=== PATIENT | female | born 1980 | race Caucasian/White ===

== ENCOUNTER 2019-06-03 10:52 | Emergency (ER) | payer BC, OTHER ==
--- OUTSIDE RECORDS SUMMARY | 2019-06-03 11:11 | XMS REPORT | Continuity of Care Document ---
:1980 External Reference #:[id number] Author Name Iwona Burciaga FNP Address [address] [place] [id number] Care Team Providers Name Role Phone Iwona Burciaga NP Care Team Information [employer] Supervisor Unavailable Iwona Burciaga NP Primary Care Physician Unavailable Payers Date Identification Numbers Payment Provider Subscriber Policy Number: [id number] Fabiana Jacobs PayID: [id number] [address] [address] [place] [address] Problems Active Problems Provider Date Migraine with typical aura Iwona Burciaga FNP Onset: 05/10/2018 Constipation Patrica SAMIA Bustillo Onset: 05/10/2018 Gastroesophageal reflux disease Iwona Burciaga FNP Onset: 05/10/2018 Excessive and frequent menstruation Iwona Burciaga FNP Onset: 2018 Generalized anxiety disorder Patrica SAMIA Bustillo Onset: 01/01/2019 Family History Date Family Member(s) Observation Comments Father No Current Problems Mother Anemia Paternal Grandfather Diabetes diagnosed later in life : (age 73 Paternal Grandfather due to Old-Age Years) Paternal Grandmother due to Breast () - diagnosed Cancer in early 60's. 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[employer] @ [employer] ETOH Use Rarely consumes alcohol Tobacco Use Start: Unknown Patient has never smoked Smoking Status Reviewed: 04/10/19 Patient has never smoked Allergies, Adverse Reactions, Alerts Description No Known Drug Allergies Medications Active Medications SIG Qnty Indications Ordering Date Provider Sertraline HCL 1 by mouth every day 30tabs F41.1 [facility], 03/13/2019 50mg *in place of 25 mg Jenniferleigh, Tablets [employer] Buspirone HCL Take 1 To 2 Tablets 90tabs F41.1 [facility], 01/16/2019 5mg By Mouth Up To Three Jenniferleigh, Tablets Times Daily as [employer] Needed. Maximum Daily Dose Is 6. Maximum Daily Dose Is 6 Omeprazole 1 by mouth every day 30caps K21.9 [facility], 03/29/2018 20mg Jenniferleigh, Capsules DR SAMIA Nasonex one spray each 17gm [facility], 50mcg/Act nostril one to two Jenniferleigh, Suspension times a day [employer] Metamucil as needed for Unknown 0.52gm constipation Capsules Colace one PO at hs as Unknown 100mg needed for Capsules constipation Rizatriptan dissolve 1 to 2 9tabs Mack, Benzoate tablets on the [facility], 10mg tongue at onset of [employer] Tablets Dispers headache. may take another 2 hours later History Medications Sertraline HCL 1 tab by mouth 30tabs F41.1 [facility], 01/01/2019 - 25mg every day 03/13/2019 Tablets Topiramate one po qd january 60tabs G43.109 [facility], 06/11/2018 - 25mg Tablets increase dose to [facility], 01/01/2019 bid if needed [employer] Propranolol HCL ER 1 by mouth every 30caps G43.109 [facility], 05/10/2018 - 80mg day [facility], 06/11/2018 Caps ER 24HR [employer] Rizatriptan Benzoate 1-2 tabs by mouth 14tabs [facility], 03/29/2018 - at headache [facility], 03/29/2018 5mg Tablets onset, can take [employer] another 2 hours later, max 20mg/day Amitriptyline HCL 1 by mouth every 30tabs G43.109 [facility], 03/29/2018 - 25mg night at bedtime [facility], 05/10/2018 Tablets *for migraines [employer] Immunizations CPT Code Status Date Vaccine Lot # [id number] Given 05/24/2018 Influenza Virus Vaccine, Quadrivalent, 36 Mos+, .5ML [id number] Given 03/29/2018 Tdap injection [id number] Vital Signs Date Vital Result Comment 04/10/2019 9:07am BP Systolic Sitting Left Arm 133 mmHg BP Diastolic Sitting Left Arm 86 mmHg Body Temperature 97.8 F Heart Rate 76 /min Respiratory Rate 17 /min Height 67 inches 5'7" Weight 190.00 lb BMI (Body Mass Index) 29.8 kg/m2 BSA (Body Surface Area) 1.98 m2 [place] body weight in kilograms 61 kg 03/13/2019 9:06am BP Systolic Sitting Right Arm 152 mmHg BP Diastolic Sitting Right Arm 94 mmHg Heart Rate 80 /min Respiratory Rate 17 /min Height 67 inches 5'7" Weight 192.00 lb BMI (Body Mass Index) 30.1 kg/m2 BSA (Body Surface Area) 1.99 m2 [place] body weight in kilograms 61 kg O2 % BldC Oximetry 98 % Pain Level 0 01/16/2019 11:33am BP Systolic 132 mmHg BP Diastolic 80 mmHg Heart Rate 103 /min Respiratory Rate 15 /min Height 67 inches 5'7" Weight 192.00 lb BMI (Body Mass Index) 30.1 kg/m2 BSA (Body Surface Area) 1.99 m2 [place] body weight in kilograms 61 kg O2 % BldC Oximetry 99 % 01/01/2019 11:56am BP Systolic 140 mmHg BP Diastolic 92 mmHg Heart Rate 107 /min Respiratory Rate 17 /min Height 67 inches 5'7" Weight 194.12 lb BMI (Body Mass Index) 30.4 kg/m2 BSA (Body Surface Area) 2.00 m2 [place] body weight in kilograms 61 kg O2 % BldC Oximetry 99 % 07/17/2018 10:22am BP Systolic 130 mmHg BP Diastolic 84 mmHg Body Temperature 96.4 F Heart Rate 92 /min Respiratory Rate 18 /min Height 67 inches 5'7" Weight 181.00 lb BMI (Body Mass Index) 28.3 kg/m2 BSA (Body Surface Area) 1.94 m2 [place] body weight in kilograms 61 kg O2 % BldC Oximetry 96 % 06/11/2018 8:10am BP Systolic Sitting Left Arm 118 mmHg BP Diastolic Sitting Left Arm 76 mmHg Heart Rate 88 /min Respiratory Rate 18 /min Height 67 inches 5'7" Weight 182.00 lb BMI (Body Mass Index) 28.5 kg/m2 BSA (Body Surface Area) 1.94 m2 [place] body weight in kilograms 61 kg 05/10/2018 8:56am BP Systolic Sitting Left Arm 112 mmHg BP Diastolic Sitting Left Arm 72 mmHg Heart Rate 80 /min Respiratory Rate 18 /min Height 67 inches 5'7" Weight 180.38 lb BMI (Body Mass Index) 28.2 kg/m2 BSA (Body Surface Area) 1.94 m2 [place] body weight in kilograms 61 kg 03/29/2018 10:06am BP Systolic Sitting Left Arm 122 mmHg BP Diastolic Sitting Left Arm 70 mmHg Heart Rate 72 /min Respiratory Rate 18 /min Height 67 inches 5'7" Weight 185.00 lb BMI (Body Mass Index) 29.0 kg/m2 BSA (Body Surface Area) 1.96 m2 [place] body weight in kilograms 61 kg Last Menstrual Period [id number] Results Test Date Facility Test Result H/L Range Note Urine Dipstick 03/29/2018 [facility] PH 6 Low 6.5-7.5 Ua Specific [place] 1.005 Low 1.010-1.030 Procedures Date Code Description Status 01/01/2019 93343 Remove Impact Cerumen Irrigati Completed Encounters Type Date Location Provider Dx Diagnosis Office Visit 03/13/2019 [facility] Veda Burciaga, F41.1 Generalized anxiety 9:[address]a [address] [place], disorder [employer] R03.0 Elevated blood-pressure reading, w/o diagnosis of htn Office Visit 01/16/2019 [facility] Burciaga, F41.1 Generalized 11:30a Medicine SAMIA Spencer anxiety disorder RD Office Visit 01/01/2019 Family Burciaga, Z01.411 Encntr for quality control lead 11:30a Medicine SAMIA Spencer exam (general) RD (routine) w abnormal findings N92.0 Excessive and frequent menstruation with regular cycle G43.109 Migraine with aura, not intractable, w/o status migrainosus F41.1 Generalized anxiety disorder H61.23 Impacted cerumen, bilateral Office Visit 07/17/2018 Family Burciaga, G43.109 Migraine with 10:30a Medicine SAMIA Spencer aura, not RD intractable, w/o status migrainosus H61.23 Impacted cerumen, bilateral K59.00 Constipation, unspecified K21.9 Gastro-esophageal reflux disease without esophagitis Office Visit 06/11/2018 Family Patrica, G43.109 Migraine with 8:15a [facility] [place], [employer] aura, not RD intractable, w/o status migrainosus H61.23 Impacted cerumen, bilateral K59.00 Constipation, unspecified Office Visit 05/10/2018 Family Patrica, G43.109 Migraine with 9:00a [facility] [place], [employer] aura, not RD intractable, w/o status migrainosus K59.00 Constipation, unspecified K21.9 Gastro-esophageal reflux disease without esophagitis H61.23 Impacted cerumen, bilateral Office Visit 03/29/2018 Family Patrica, G43.109 Migraine with 10:15a [facility] [place], [employer] aura, not RD intractable, w/o status migrainosus K59.00 Constipation, unspecified K21.9 Gastro-esophageal reflux disease without esophagitis Z23 Encounter for immunization Plan of Treatment 04/10/2019 - Iwona Burciaga FNPF41.1 Generalized anxiety disorderComments :doing well with increased dose of Sertraline at 50 mg a day. Continue PRN use of Buspirone, and youcould try taking this before bedtime to help with sleepFollow up:nurse visit flu shot in May/jun [employer]
[2019-06-03 12:05] VITALS: BP 134/73
--- NOTE | 2019-06-03 12:30 | UC ---
General HPI - HPI Summary HPI Summary: pt is c/o pain to the inside of her L knee since 05/24/19. on 05/23/19, a projector screen came down on her R shoulder then hit her R foot and L knee while at work. she noted pain to the inside of her L knee the next day. it is a burning discomfort and worsens with use. it sometimes feels warm. the joint does not lock or give out. self tx with lidocaine. - History of Current Complaint Chief Complaint: UCLowerExtremity Stated Complaint: WC-LEFT KNEE INJURY(05/23/19) Time Seen by Provider: 06/03/19 12:18 Hx Obtained From: Patient Hx Last Menstrual Period: 05/12/19 Pain Intensity: 4 Associated Signs & Symptoms: Positive: Other - no rash. Negative: Edema, Fever , Weakness - Allergy/Home Medications Allergies/Adverse Reactions: Allergies Allergy/AdvReac Type Severity Reaction Status Date / Time No Known Allergies Allergy Verified 06/03/19 12:05 Home Medications: Home Medications Omeprazole 20 mg PO DAILY 06/03/19 [History Confirmed 06/03/19] Sertraline HCl [Zoloft] 50 mg PO DAILY 06/03/19 [History Confirmed 06/03/19] busPIRone TAB* [Buspar TAB*] 5 mg PO TID PRN 06/03/19 [History Confirmed ] PMH/Surg Hx/FS Hx/Imm Hx GI/ History: Gastroesophageal Reflux Psychological History: Depression - Surgical History Surgical History: Yes Surgery Procedure, Year, and Place: nasal septum. x 2. hemmorhoidectomy - Social History Alcohol Use: Occasionally Substance Use Type: None Smoking Status (MU): Never Smoked Tobacco Review of Systems All Other Systems Reviewed And Are Negative: No Constitutional: Negative: Fever Skin: Negative: Rash Musculoskeletal: Negative: Decreased ROM, Edema Neurological: Negative: Weakness, Paresthesia, Numbness Physical Exam Triage Information Reviewed: Yes Appearance: Well-Appearing Vital Signs: Initial Vital Signs Temp 97.1 F 06/03/19 11:56 Pulse 77 06/03/19 11:56 Resp 16 06/03/19 11:56 BP 134/73 06/03/19 11:56 Pulse Ox 100 06/03/19 11:56 Vital Signs Reviewed: Yes Musculoskeletal: Positive: Other: - LLE= hip, ankle, foot without deformity or tenderness. knee has no deformity, swelling or doscoloration. Patella not ballotable and no patellar grind. No joint laxity. Slightly tender over medial joint line and medial tibial tuberosity. active and passive ROM intact without pain and normal gait. Neurological: Positive: Alert Psychological: Positive: Age Appropriate Behavior Skin Exam: Normal Diagnostics - Radiology No standard instances Radiology Interpretation Completed By: Radiologist - IMPRESSION: NO ACUTE OSSEOUS INJURY. IF SYMPTOMS PERSIST, RECOMMEND REPEAT IMAGING. Course/Dx - Differential Dx - Multi-Symptom Differential Diagnoses: Other - nad xray. Per anserine bursitis vs medial meniscus injury or both. will tx nsaid and ortho f/u. - Diagnoses Provider Diagnosis: Left medial knee pain Discharge ED - Sign-Out/Discharge Documenting (check all that apply): Patient Departure All imaging exams completed and their final reports reviewed: Yes - Discharge Plan Condition: Stable Disposition: HOME Prescriptions: Naproxen [Naprosyn 500 mg tab] 500 mg PO BID 5 Days #10 tablet Patient Education Materials: Knee Bursitis (ED), Knee Pain (ED) Referrals: Chance Mckinley MD [Medical Doctor] - As Soon As Possible - Billing Disposition and Condition Condition: STABLE Disposition: Home
== END 2019-06-03 13:13 | disposition home or self-care (01) ==
LOC: UCCORT 10:52
DX: M25.562 Pain in left knee (principal); K21.9 Gastro-esophageal reflux disease without esophagitis; F32.9 Major depressive disorder, single episode, unspecified
CPT/HCPCS: 99212; G0463